=== PATIENT | male | born 1995 ===

== ENCOUNTER 2020-10-05 23:56 | Observation (INO) | payer OTHER ==
[2020-10-06] MEDS ORDERED: SODIUM CHLORIDE 0.9% 1,000 ML IV STA (00:04)
[2020-10-06 00:07] VITALS: RESP 18
--- NOTE | 2020-10-06 00:07 | ED ---
Seizure HPI - General Stated Complaint: Seizures Time Seen by Provider: 10/06/20 00:04 - Related Data Allergies Allergy/AdvReac Type Severity Reaction Status Date / Time No Known Allergies Allergy Verified 10/06/20 00:07 Review of Systems ROS Statement: Those systems with pertinent positive or pertinent negative responses have been documented in the HPI. ROS Other: All systems not noted in ROS Statement are negative. Course Vital Signs 10/06/20 10/06/20 00:00 00:33 Temperature 98.0 F Pulse Rate 74 65 Respiratory 18 18 Rate Blood Pressure 159/99 142/88 O2 Sat by Pulse 99 99 Oximetry Medical Decision Making - Lab Data Result diagrams: 10/06/20 00:22 10/06/20 00:22 Lab Results 10/06/20 10/06/20 10/06/20 Range/Units 00:22 00:22 00:22 WBC 12.6 H (3.8-10.6) k/uL RBC 5.80 (4.30-5.90) m/uL Hgb 17.2 (13.0-17.5) gm/dL Hct 50.0 (39.0-53.0) % MCV 86.1 (80.0-100.0) fL MCH 29.6 (25.0-35.0) pg MCHC 34.4 (31.0-37.0) g/dL RDW 13.1 (11.5-15.5) % Plt Count 192 (150-450) k/uL MPV 9.8 Neutrophils % 70 % Lymphocytes % 20 % Monocytes % 5 % Eosinophils % 3 % Basophils % 1 % Neutrophils # 8.9 H (1.3-7.7) k/uL Lymphocytes # 2.5 (1.0-4.8) k/uL Monocytes # 0.6 (0-1.0) k/uL Eosinophils # 0.4 (0-0.7) k/uL Basophils # 0.1 (0-0.2) k/uL Sodium 137 (137-145) mmol/L Potassium 4.9 (3.5-5.1) mmol/L Chloride 102 (98-107) mmol/L Carbon Dioxide 24 (22-30) mmol/L Anion Gap 11 mmol/L BUN 19 (9-20) mg/dL Creatinine 1.01 (0.66-1.25) mg/dL Est GFR (CKD-EPI)AfAm >90 (>60 ml/min/1.73 sqM) Est GFR (CKD-EPI)NonAf >90 (>60 ml/min/1.73 sqM) Glucose 115 H (74-99) mg/dL Calcium 9.8 (8.4-10.2) mg/dL Total Bilirubin 0.8 (0.2-1.3) mg/dL AST 43 (17-59) U/L ALT 31 (4-49) U/L Alkaline Phosphatase 136 H (38-126) U/L Total Protein 8.7 H (6.3-8.2) g/dL Albumin 5.2 H (3.5-5.0) g/dL Salicylates <1.0 mg/dL Urine Opiates Screen Not Detected (NotDetected) Ur Oxycodone Screen Not Detected (NotDetected) Urine Methadone Screen Not Detected (NotDetected) Ur Propoxyphene Screen Not Detected (NotDetected) Acetaminophen <10.0 ug/mL Ur Barbiturates Screen Not Detected (NotDetected) U Tricyclic Antidepress Not Detected (NotDetected) Ur Phencyclidine Scrn Not Detected (NotDetected) Ur Amphetamines Screen Not Detected (NotDetected) U Methamphetamines Scrn Not Detected (NotDetected) U Benzodiazepines Scrn Not Detected (NotDetected) Urine Cocaine Screen Not Detected (NotDetected) U Marijuana (THC) Screen Detected H (NotDetected) Serum Alcohol <10 mg/dL - EKG Data -: EKG Interpreted by Me (EKG is sinus rhythm 66 TN 130 QRS 92 QTC 410) Disposition Clinical Impression: New onset seizure, Status epilepticus Disposition: ADMITTED IP TO THIS HOSP Condition: Fair Is patient prescribed a controlled substance at d/c from ED?: No Referrals: None,Stated [Primary Care Provider] - 1-2 days
[2020-10-06 00:35] LABS: Basophils # (A) 0.1 k/uL (0-0.2); Basophils % (A) 1 %; Eosinophils # (A) 0.4 k/uL (0-0.7); Eosinophils % (A) 3 %; HGB 17.2 gm/dL (13.0-17.5); Lymphocytes # (A) 2.5 k/uL (1.0-4.8); Lymphocytes % (A) 20 %; MCH 29.6 pg (25.0-35.0); MCHC 34.4 g/dL (31.0-37.0); MCV 86.1 fL (80.0-100.0); Mean Platelet Volume 9.8; Monocytes # (A) 0.6 k/uL (0-1.0); Monocytes % (A) 5 %; Neutrophils # (A) 8.9 k/uL (1.3-7.7); Neutrophils % (A) 70 %; Platelet Count 192 k/uL (150-450); RDW 13.1 % (11.5-15.5); WBC 12.6 k/uL (3.8-10.6)
[2020-10-06 00:45] LABS: Amphetamine Screen,Urine Not Detected (NotDetected); Barbiturate Screen,Urine Not Detected (NotDetected); Benzodiazepines Screen,Urine Not Detected (NotDetected); Cocaine Screen,Urine Not Detected (NotDetected); Methadone Screen, Urine Not Detected (NotDetected); Opiate Screen,Urine Not Detected (NotDetected); Oxycodone Screen, Urine Not Detected (NotDetected); Phencyclidine Screen,Urine Not Detected (NotDetected); Tricyclic Antidepressant,Urine Not Detected (NotDetected); Urn Cannabinoid Scrn Detected (NotDetected)
--- NOTE | 2020-10-06 00:55 | CT ---
EXAMINATION TYPE: CT brain wo con DATE OF EXAM: 10/06/2020 COMPARISON: None HISTORY: Seizure. no prior on PACS CT DLP: 1056.4 mGycm Automated exposure control for dose reduction was used. Ventricles and sulci appear normal. There is no mass effect nor midline shift. There is no sign of in tracranial hemorrhage. The calvarium is intact. There is normal aeration of the mastoid sinuses. Sell a turcica appears normal. IMPRESSION: Negative unenhanced head CT scan.
[2020-10-06 00:59] LABS: ALT 31 U/L (4-49); AST 43 U/L (17-59); Acetaminophen <10.0 ug/mL; African American GFR (CKD) >90 (>60 ml/min/1.73 sqM); Albumin 5.2 g/dL (3.5-5.0); Alcohol <10 mg/dL; Alkaline Phosphatase 136 U/L (38-126); Anion Gap 11 mmol/L; Blood Urea Nitrogen 19 mg/dL (9-20); Calcium 9.8 mg/dL (8.4-10.2); Carbon Dioxide 24 mmol/L (22-30); Chloride 102 mmol/L (98-107); Glucose 115 mg/dL (74-99); Non-African American GFR(CKD) >90 (>60 ml/min/1.73 sqM); Potassium 4.9 mmol/L (3.5-5.1); Salicylate <1.0 mg/dL; Sodium 137 mmol/L (137-145); Total Bilirubin 0.8 mg/dL (0.2-1.3); Total Protein 8.7 g/dL (6.3-8.2)
[2020-10-06] MEDS ORDERED: THIAMINE 100 MG/ML 2 ML VIAL IM STA (01:02)
[2020-10-06] MEDS ORDERED: LORazepam 2 MG/ML INJ IV PRN ×3 (01:02)
[2020-10-06] MEDS ORDERED: NALOXONE 0.4 MG/ML 1 ML VIAL IV PRN (01:02)
[2020-10-06] MEDS ORDERED: ONDANSETRON 4 MG/2 ML VIAL IVP PRN (01:02)
[2020-10-06] MEDS ORDERED: levETIRAcetam IV 1,000 MG in SALINE 1 100ML.BAG IVPB STA (02:05)
--- NOTE | 2020-10-06 04:58 | P.HPIM ---
History of Present Illness H&P Date: 10/06/20 Patient is a 22-year-old male with no known PMH who was brought into the emergency room after having multiple seizure-like episodes. The patient notes that he was in his usual state of health and was at his friend's house when he suddenly began feeling strange. He reports that it felt as though "pressure was building up towards me". He subsequently lost consciousness and was noted by his friends to be vigorously shaking all his limbs while unconscious on the carpeted floor. The patient also lost control of his bladder during this episode which lasted around a minute. The patient does not recall feeling confused upon awakening. He subsequently had another episode soon after which was not as severe and was shorter. The patient apparently struck his face during the first episode causing bruising. The patient's friends activated EMS. The patient denies any prior history of seizures though notes that his sister also has seizure disorder. The patient denied weakness, numbness, tingling, fever, chills, cough, headaches, or visual disturbances. He reports history of binge drinking with drinking as much as a fifth of vodka in one day but reports that he often goes weeks to months without drinking and reports that his last drink was 2 shots earlier in the evening today. In the emergency room, CT head was unremarkable with EKG showing normal sinus rhythm at [address]/T- wave changes noted as reviewed by me. Past Medical History Past Medical History: Hypertension History of Any Multi-Drug Resistant Organisms: None Reported Additional Past Surgical History / Comment(s): wisdom teeth pulled, stitches in leg 2013 Past Anesthesia/Blood Transfusion Reactions: No Reported Reaction Past Psychological History: No Psychological Hx Reported Smoking Status: Light tobacco smoker Past Alcohol Use History: Heavy Past Drug Use History: Marijuana Medications and Allergies Allergies Allergy/AdvReac Type Severity Reaction Status Date / Time No Known Allergies Allergy Verified 10/06/20 00:07 Physical Exam Vitals: Vital Signs Temp Pulse Pulse Resp BP BP Pulse Ox 10/06/20 03:00 98.2 F 67 18 142/82 97 10/06/20 02:13 18 10/06/20 01:56 68 18 137/86 98 10/06/20 00:33 65 18 142/88 99 10/06/20 00:00 98.0 F 74 18 159/99 99 Intake and Output 10/05/20 10/05/20 10/06/20 14:59 22:59 06:59 Other: Voiding Method Toilet Weight 86.183 kg General: non toxic, no distress, appears at stated age, normal weight Derm: Right facial abrasion noted, no unusual ecchymoses, warm, dry Head: atraumatic, normocephalic, symmetric Eyes: EOMI, no lid lag, anicteric sclera, pupils equal round reactive to light ENT: Nose and ears atraumatic, no thrush, no pharyngeal erythema Neck: No thyromegaly, no cervical lymphadenopathy, trachea midline, supple Mouth: no lip lesion, mucus membranes moist, no tongue bites noted Cardiovascular: S1S2 reg, no murmur, positive posterior tibial pulse bilateral, no edema, capillary refill less than 2 seconds Lungs: CTA bilateral, no rhonchi, no rales , no accessory muscle use Abdominal: soft, nontender to palpation, no guarding, no appreciable organomegaly, normal bowel sounds Ext: no gross muscle atrophy, muscle strength 5 out of 5 in all 4 extremities grossly, no contractures, Neuro: CN II-XI grossly intact, light touch intact all 4 extremities, finger to nose within normal limits, Psych: Alert, oriented, appropriate affect Results CBC & Chem 7: 10/06/20 00:22 10/06/20 00:22 Labs: Abnormal Lab Results - Last 24 Hours (Table) 10/06/20 10/06/20 10/06/20 Range/Units 00:22 00:22 00:22 WBC 12.6 H (3.8-10.6) k/uL Neutrophils # 8.9 H (1.3-7.7) k/uL Glucose 115 H (74-99) mg/dL Alkaline Phosphatase 136 H (38-126) U/L Total Protein 8.7 H (6.3-8.2) g/dL Albumin 5.2 H (3.5-5.0) g/dL U Marijuana (THC) Screen Detected H (NotDetected) Thrombosis Risk Factor Assmnt - Choose All That Apply Any of the Below Risk Factors Present?: No Assessment and Plan Plan: Syncope, suspected likely secondary to newly diagnosed seizure disorder -Neurology consult -Seizure precautions -Continue with Kera for now -[facility] protocol due to hx of EtOH abuse -EEG in a.m. Leukocytosis -No signs of active infection at this time -Likely secondary to acute stressor -Monitor for now DVT prophylaxis -Heparin subq The patient is admitted with an anticipated less than 2 midnight stay for evaluation of seizure CODE STATUS: Full Code Discussed with: Patient Anticipated discharge date: in am Anticipated discharge place: Home A total of 35 minutes was spent on the care of this complex patient more than 50% of the time was spent in counseling and care coordination.
[2020-10-06] MEDS: HEPARIN SODIUM,PORCINE 5,000 UNIT/ML 1 ML VIAL SQ SCH ×2 (07:23→16:04)
[2020-10-06 08:09] VITALS: TEMP 97.9
[2020-10-06 09:45] LABS: African American GFR (CKD) 122.4 (60.0-200.0); Anion Gap 6.4 mmol/L (4.00-12.00); Calcium 9.1 mg/dL (8.7-10.3); Carbon Dioxide 27.6 mmol/L (21.6-31.8); Non-African American GFR(CKD) 105.6 (60.0-200.0); Potassium 4.2 mmol/L (3.5-5.5)
[2020-10-06 09:51] LABS: HCT 44.7 % (39.6-50.0); HGB 15.3 g/dL (13.0-17.0); MCH 29.7 pg (27.0-32.0); MCHC 34.2 g/dL (32.0-37.0); MCV 86.6 fL (80.0-97.0); Mean Platelet Volume 12.7 fL (9.5-12.2); Platelet Count 247 X 10*3/uL (140-440); RBC 5.16 X 10*6/uL (4.40-5.60); RDW 12.4 % (11.5-14.5)
[2020-10-06] MEDS ORDERED: ACETAMINOPHEN TAB 325 MG TAB PO PRN (10:33)
--- NOTE | 2020-10-06 12:25 | P.PN ---
Subjective Progress Note Date: 10/06/20 Patient is doing well today. No seizure episodes since admission. He is complaining of mild headache this morning. Objective - Vital Signs Vital signs: Vital Signs Temp 97.9 F 10/06/20 08:00 Pulse 66 10/06/20 08:00 Resp 18 10/06/20 08:00 BP 123/76 10/06/20 08:00 Pulse Ox 98 10/06/20 08:00 Intake & Output 10/05/20 10/06/20 10/06/20 18:59 06:59 18:59 Intake Total 400 Balance 400 Weight 86.183 kg Intake: Intake, IV Titration 100 Amount levETIRAcetam IV 500 mg 100 In Sodium Chloride 0.9% 100 ml @ 400 mls/hr IVPB Q12H [facility] Rx#:[id number] Oral 300 Other: Voiding Method Toilet - Exam General: The patient is awake and alert, in no distress Eye: there is normal conjunctiva bilaterally. Neck: The neck is supple, there is no JVD. Cardiovascular: Normal S1-S2, no S3-S4, no murmurs. Respiratory: Lungs clear to auscultation bilaterally Gastrointestinal: Abdomen is soft, nontender Musculoskeletal: There is no pedal edema. Neurological:. Speech is normal. Skin: Skin is warm and dry - Labs CBC & Chem 7: 10/06/20 06:28 10/06/20 06:28 Labs: Abnormal Lab Results - Last 24 Hours (Table) 10/06/20 10/06/20 10/06/20 Range/Units 00:22 00:22 00:22 WBC 12.6 H (3.8-10.6) k/uL MPV (9.5-12.2) fL Neutrophils # 8.9 H (1.3-7.7) k/uL Glucose 115 H (74-99) mg/dL Alkaline Phosphatase 136 H (38-126) U/L Total Protein 8.7 H (6.3-8.2) g/dL Albumin 5.2 H (3.5-5.0) g/dL U Marijuana (THC) Screen Detected H (NotDetected) 10/06/20 Range/Units 06:28 WBC 12.60 H (3.8-10.6) k/uL MPV 12.7 H (9.5-12.2) fL Neutrophils # (1.3-7.7) k/uL Glucose (74-99) mg/dL Alkaline Phosphatase (38-126) U/L Total Protein (6.3-8.2) g/dL Albumin (3.5-5.0) g/dL U Marijuana (THC) Screen (NotDetected) Assessment and Plan Assessment: This is a 22-year-old male was brought into the emergency room after having multiple seizure episodes. Patient was evaluated in the ER and admitted to the hospital for further management of his medical problems noted below. 1. Seizure episode, patient was loaded with Keppra. Currently on IV Keppra 500 mg twice daily. Computed tomography scan of the head showed no acute intracranial findings. EEG ordered. Awaiting neurology evaluation. Continue seizure precautions. 2. Heavy alcohol use, counseled extensively to cut down. Ativan CIWA protocol as needed 3. DVT prophylaxis with subcu heparin
--- NOTE | 2020-10-06 13:35 | P.CNNES ---
History of Present Illness Consult date: 10/06/20 Requesting physician: Conner Carter Reason for Consult: New onset seizure History of Present Illness: Patient is a 25-year-old male came to the hospital by ambulance just before midnight last night for multiple seizure like episodes. He was in usual state of health, stating that he was chilling with his friends, head to shots of crown apple, and some marijuana which he usually does. He was sitting in the chair, when he felt strange, as if the water was building in a dam, and an as the pressure was building up, she felt as if the wall of the dam broke and everything falling through. At that time he fell down, his eyes rolled up, could feel shaking, like in dream, screaming. He states the seizure-like activity lasted for about 15-20 seconds, then when he came to he was sweating. But then he again blacked out and had had another seizure-like spell. His friends reported that he was shaking vigorously all limbs while unconscious on the carpeted floor. He suffered from a rug burn on the right cheek. He lost control of urine with the seizure, but no tongue bite. No previous history of seizures. At the time EMS arrived, he was back to baseline. Patient's vitals at the scene was blood pressure 169/122, pulse rate 80, respiration [address] head negative, EKG with normal sinus rhythm. Blood test showed WBC 12.6 hemoglobin 17.2 and platelets are 192. Chem-7 is normal. Hepatic panel normal, urine drug screen positive for marijuana. Blood alcohol negative. Nguyễn virus PCR negative. Patient states that he vapes every day, and states "too much". He also binge drinks once a week. Patient states that on last Wednesday 5 days ago, he drank a fifth with twisted tea. He became drunk, slept, but not over a couple days later. He states was feeling perfectly fine on Wednesday and Wednesday. Patient states that he can go without drinking for 1-2 days and then does a binge dri nking. He denies taking any Xanax, or any opiates. Never has any history of seizures. Review of Systems Completely unremarkable. All 14 point review of systems unremarkable. Past Medical History Past Medical History: Hypertension History of Any Multi-Drug Resistant Organisms: None Reported Additional Past Surgical History / Comment(s): wisdom teeth pulled, stitches in leg 2014 Past Anesthesia/Blood Transfusion Reactions: No Reported Reaction Past Psychological History: No Psychological Hx Reported Smoking Status: Light tobacco smoker Past Alcohol Use History: Heavy Past Drug Use History: Marijuana Medications and Allergies Home Medications Medication Instructions Recorded Confirmed Type No Known Home Medications 10/06/20 10/06/20 History Allergies Allergy/AdvReac Type Severity Reaction Status Date / Time No Known Allergies Allergy Verified 10/06/20 08:23 Physical Examination - Vital Signs Vital Signs: Vital Signs Temp Pulse Pulse Resp BP BP Pulse Ox 10/06/20 08:00 97.9 F 66 18 123/76 98 10/06/20 03:00 98.2 F 67 18 142/82 97 10/06/20 02:13 18 10/06/20 01:56 68 18 137/86 98 10/06/20 00:33 65 18 142/88 99 10/06/20 00:00 98.0 F 74 18 159/99 99 Intake and Output 10/05/20 10/06/20 10/06/20 22:59 06:59 14:59 Intake Total 400 Balance 400 Intake: Intake, IV Titration 100 Amount levETIRAcetam IV 500 mg 100 In Sodium Chloride 0.9% 100 ml @ 400 mls/hr IVPB Q12H [facility] Rx#:[id number] Oral 300 Other: Voiding Method Toilet Weight 86.183 kg On examination patient is a young male, very pleasant, in no acute distress. Patient is alert awake, oriented to time place and person. Speech and language functions are normal. Attention, concentration and fund of knowledge adequate. On cranial examination pupils are round and reactive light, visual geiger are full on confrontation, extraocular muscles are intact with no nystagmus. Face is symmetric, tongue protrudes to the midline. Palatal elevati on and sensation normal, hearing and shoulder shrug normal. On muscle strength testing there is no pronator drift and the strength is normal in arms and legs distally and proximally. Reflexes are 1 in the upper limbs, 2 in the lower limbs and plantars downgoing. Sensory to touch is equal. No ataxia for [id number] testing, tone and bulk of muscles normal. Gait normal. On general exam should there is no carotid bruit or murmur, peripheral pulses are present, abdomen soft nontender, chest clear. Patient is a rug burn on the right cheek. No tongue bite elham. Results - Laboratory Findings CBC and BMP: 10/06/20 06:28 10/06/20 06:28 Abnormal Lab Findings: Abnormal Labs 10/06/20 10/06/20 10/06/20 00:22 00:22 00:22 WBC 12.6 H MPV Neutrophils # 8.9 H Glucose 115 H Alkaline Phosphatase 136 H Total Protein 8.7 H Albumin 5.2 H U Marijuana (THC) Screen Detected H 10/06/20 06:28 WBC 12.60 H MPV 12.7 H Neutrophils # Glucose Alkaline Phosphatase Total Protein Albumin U Marijuana (THC) Screen Assessment and Plan Assessment: * New onset seizure, likely due to alcoholism (?withdrawal), ?vaping, THC use. Plan: * EEG was reviewed, normal. No epileptiform activity seen. * As this was his first seizure, no indication for antiepileptic medication. * Patient was recommended to stay off alcoholism, THC and vaping habits. * Patient was recommended to consider an MRI of the brain as an outpatient to rule out any secondary cause. * Patient was informed of [place] state law of no driving unless seizure free for 6 months, climbing ladders, operating dangerous machinery or unsupervised swimming. * Neurologically clear for discharge.
[2020-10-06 13:59] LABS: Appearance,Urine Clear (Clear); Bilirubin,Urine Negative (Negative); Blood,Urine Negative (Negative); Color,Urine Light Yellow; Glucose,Urine (UA) Negative (Negative); Ketones,Urine Negative (Negative); Leukocyte Esterase,Urine Negative (Negative); Nitrite,Urine Negative (Negative); Protein,Urine Negative (Negative); Specific Gravity,Urine 1.016 (1.001-1.035); Urobilinogen,Urine <2.0 mg/dL (<2.0)
[2020-10-06] MEDS ORDERED: levETIRAcetam IV 500 MG in SODIUM CHLORIDE 0.9% 100 ML IVPB SCH (14:00)
[2020-10-06 14:08] VITALS: BP 145/81; PULSE 69
--- NOTE | 2020-10-06 16:02 | EEG ---
ELECTROENCEPHALOGRAM REPORT DATE OF SERVICE: 10/06/2020 PREAMBLE: This is a 25-year-old male with new onset seizure. This study is performed to evaluate for any epileptiform activity. EEG FINDINGS: This is a 21 channel routine EEG recording in a patient utilizing 10/20 international system with referential bipolar montages. Background consists of well developed, well regulated, moderate voltage activity in the 9-10 hertz alpha. Background is posterior dominant and reactive to eye opening and closing. Photic driving response was not seen. Drowsiness was seen with appearance of bilaterally symmetric theta frequency rhythm. Stage 2 sleep was seen with presence of some vertex waves, sleep spindles and K complexes. No focal or generalized epileptiform activity was seen. IMPRESSION: This is a normal EEG during wakefulness, drowsiness and brief stage 2 sleep. No epileptiform activity was seen. MMODL / IJN: [id number] /
--- NOTE | 2020-10-06 16:33 | P.DS ---
Providers Date of admission: 10/06/20 01:02 Expected date of discharge: 10/06/20 Attending physician: Luz Devries MD Consults: 10/06/20 01:02 Consult Physician Routine Consulting Provider: Roxanne Hare Consult Reason/Comments: [place] Do you want consulting provider notified?: Yes Primary care physician: Stated None Hospital Course: This is a 25-year-old male with past medical history significant for alcohol abuse and draping marijuana presented to the emergency room after he had the seizure episode. Patient was evaluated in the ER and a computed tomography scan of the head was negative. He was admitted to the hospital and was seen and evaluated by neurology. He underwent EEG that was unremarkable. His seizure was thought to be attributed to alcoholism. No seizure medication was recommended at this time. Patient was advised to follow-up with his PCP for MRI of the brain. He was strongly advised to stop drinking and using illicit drugs. He was also advised of state laws not to drive a car or operate a vehicle for 6 month. He verbalized understanding. He'll be discharged in a stable condition. Patient Condition at Discharge: Fair Plan - Discharge Summary Discharge Rx Participant: No New Discharge Prescriptions: No Action No Known Home Medications Discharge Medication List No Known Home Medications 10/06/20 [History] Follow up Appointment(s)/Referral(s): None,Stated [Primary Care Provider] - 1-2 days Trevor Michele [STAFF PHYSICIAN] - 1 Week Discharge Disposition: HOME SELF-CARE
[2020-10-06] MEDS ORDERED: THIAMINE 100 MG TAB PO SCH (17:30)
== END 2020-10-06 17:12 | disposition home or self-care (01) ==
LOC: EC 23:56 → 4SSUR 10-06 01:02
PROVIDERS: ADMIT Internal Medicine; ATTEND Internal Medicine
DX: G40.901 Epilepsy, unspecified, not intractable, with status epilepticus (principal); F10.10 Alcohol abuse, uncomplicated; D72.829 Elevated white blood cell count, unspecified; T20.06XA Burn of unspecified degree of forehead and cheek, initial encounter; F17.290 Nicotine dependence, other tobacco product, uncomplicated; F12.90 Cannabis use, unspecified, uncomplicated; Z20.828 Contact with and (suspected) exposure to other viral communicable diseases; Z86.79 Personal history of other diseases of the circulatory system; Z82.0 Family history of epilepsy and other diseases of the nervous system
CPT/HCPCS: 96372; 96374; 96361; 99285; 36415; 95816; 93005; 80053; 80048; 85025; 85027; 81003; 80306; 80143; 80320; 87635; 80179; 70450; G0378; J1644; J1953